=== PATIENT | male | born 1965 | race Caucasian/White ===

== ENCOUNTER 2016-10-16 10:56 | Observation (INO) | payer OTHER ==
[2016-10-16] MEDS ORDERED: MAG HYDROX/AL HYDROX/SIMETH 355 ML ORAL.SUSP PO ONE (11:36)
[2016-10-16] MEDS ORDERED: PANTOPRAZOLE SODIUM 40 MG in SODIUM CHLORIDE 100 ML IVPB ONE (11:36)
[2016-10-16] MEDS ORDERED: FAMOTIDINE 20 MG/50 ML IVPB 50 ML IVPB ONE ×2 (11:36→12:02)
[2016-10-16 11:41] LABS: BASOPHIL 0.8 % (0-2.0); EOSINOPHIL 1.4 % (0-4.5); MCH 31.8 pg (25.7-33.7); MCHC 34.9 g/dl (32.0-35.9); MEAN CELL VOLUME 91.3 fl (80-96); MEAN PLT VOLUME 7.5 fl (7.5-11.1); NEUTROPHILS 64.6 % (42.8-82.8); PLATELET COUNT 199 K/MM3 (134-434); RDW 13.4 % (11.9-15.9); WHITE BLOOD COUNT 6.3 K/mm3 (4.0-10.0)
[2016-10-16] MEDS ORDERED: MAG HYDROX/AL HYDROX/SIMETH 30 ML UNIT-DOSE CUP ONE (12:01)
[2016-10-16] MEDS ORDERED: PANTOPRAZOLE SODIUM 40 MG VIAL ONE (12:02)
--- NOTE | 2016-10-16 12:11 | PDOC ---
History of Present Illness - General History Source: Patient Exam Limitations: No Limitations - History of Present Illness Initial Comments: 10/16/16 12:11 The patient is a 50 year old male with no significant past medical history who presents to the emergency department today with chest pressure and heaviness since he woke up this morning. The patient went to sleep last night in his normal state of health last night but was woken from sleep around 4am. He describes his pain as pressure and heaviness localized to the center of his chest. The patient denies any associated chest pain or shortness of breath. He took 1 Aspirin for his pain. The patient had a ham and cheese sandwich this morning with coffee, which did not make his pain better or worse. His pain is not worse with movement. The patient denies any cough, rhinorrhea, recent illness, or sick contacts. He denies any headaches, blurry vision, or syncope. He denies any abdominal pain, nausea, or vomiting. The patient denies recent illness, fevers, or chills. He has a family history of hypertension and diabetes and his father from an [place] in his late 60s. <Betsy Ochoa - Last Filed: 10/16/16 16:39> <Jesus Roman - Last Filed: 10/17/16 09:15> - General Chief Complaint: Chest Pain Stated Complaint: CHEST PAIN/ RT SIDE NUMBNESS Time Seen by Provider: 10/16/16 11:32 Past History <Betsy Ochoa - Last Filed: 10/16/16 16:39> - Past Medical History Suicide Attempt (Hx): No - Psycho/Social/Smoking Cessation Hx Anxiety: No Suicidal Ideation: No Smoking History: Never smoked Hx Alcohol Use: Yes (SOCIAL) Drug/Substance Use Hx: No Substance Use Type: None <Jesus Roman - Last Filed: 10/17/16 09:15> - Past Medical History Allergies/Adverse Reactions: Allergies Allergy/AdvReac Type Severity Reaction Status Date / Time No Known Allergies Allergy Verified 10/16/16 11:05 Home Medications: Ambulatory Orders Aspirin [ASA -] 81 mg PO PRN 10/16/16 Review of Systems - Review of Systems Able to Perform ROS?: Yes Comments:: 10/16/16 12:11 GENERAL/CONSTITUTIONAL: No fever or chills. No weakness. HEAD, EYES, EARS, NOSE AND THROAT: No change in vision. No ear pain or discharge. No sore throat. CARDIOVASCULAR: +Chest pressure. No shortness of breath. RESPIRATORY: No cough, wheezing, or hemoptysis. GASTROINTESTINAL: No nausea, vomiting, diarrhea or constipation. GENITOURINARY: No dysuria, frequency, or change in urination. MUSCULOSKELETAL: No joint or muscle swelling or pain. No neck or back pain. SKIN: No rash NEUROLOGIC: No headache, vertigo, loss of consciousness, or change in strength/ sensation. ENDOCRINE: No increased thirst. No abnormal weight change. HEMATOLOGIC/LYMPHATIC: No anemia, easy bleeding, or history of blood clots. ALLERGIC/IMMUNOLOGIC: No hives or skin allergy. <Betsy Ochoa - Last Filed: 10/16/16 16:39> *Physical Exam - Vital Signs Last Vital Signs Temp Pulse Resp BP Pulse Ox 98.0 F 87 20 133/74 100 10/16/16 11:10/16/16 11:10/16/16 11:10/16/16 11:10/16/16 11:36 - Physical Exam Comments: 10/16/16 12:12 GENERAL: Awake, alert, and fully oriented, in no acute distress HEAD: No signs of trauma EYES: PERRLA, EOMI, sclera anicteric, conjunctiva clear ENT: Auricles normal inspection, hearing grossly normal, nares patent, oropharynx clear without exudates. Moist mucosa NECK: Normal ROM, supple, no lymphadenopathy, JVD, or masses LUNGS: Breath sounds equal, clear to auscultation bilaterally. No wheezes, and no crackles HEART: Regular rate and rhythm, normal S1 and S2, no murmurs, rubs or gallops ABDOMEN: Soft, nontender, normoactive bowel sounds. No guarding, no rebound. No masses EXTREMITIES: Normal range of motion, no edema. No clubbing or cyanosis. No cords, erythema, or tenderness NEUROLOGICAL: Cranial nerves II through XII grossly intact. Normal speech, normal gait SKIN: Warm, Dry, normal turgor, no rashes or lesions noted. <Betsy Ochoa - Last Filed: 10/16/16 16:39> - Vital Signs Last Vital Signs Temp Pulse Resp BP Pulse Ox 98.0 F 87 20 133/74 100 10/16/16 11:01 10/16/16 11:01 10/16/16 11:01 10/16/16 11:01 10/16/16 11:36 <Jesus Roman - Last Filed: 10/17/16 09:15> Heart Score/ECG Review - ECG Intrepretation Comment:: 10/16/16 12:12 FIRST EKG Vent rate: 64 bpm KS interval: 148ms QRS duration: 84 ms Normal sinus rhythm Normal EKG 10/16/16 15:53 REPEAT EKG Vent rate: 69 bpm KS interval: 158 ms QRS duration: 90 ms Normal sinus rhythm Normal EKG <Betsy Ochoa - Last Filed: 10/16/16 16:39> ED Treatment Course - LABORATORY CBC & Chemistry Diagram: 10/16/16 11:30 10/16/16 11:30 - ADDITIONAL ORDERS Additional order review: 10/16/16 11:30 RBC 4.87 MCV 91.3 MCHC 34.9 RDW 13.4 MPV 7.5 Neutrophils % 64.6 Lymphocytes % 26.2 D Monocytes % 7.0 Eosinophils % 1.4 Basophils % 0.8 - Medications Given in the ED: ED Medications Discontinued Medications Generic Name Dose Route Start Last Admin Trade Name Freq PRN Reason Stop Dose Admin Al Hydroxide/Mg Hydroxide 30 ml 10/16/16 11:36 10/16/16 12:08 Mylanta Suspension - PO 10/16/16 11:37 30 ml ONCE ONE Administration Pantoprazole Sodium 40 mg/ 100 mls @ 200 mls/hr 10/16/16 11:36 10/16/16 12:08 Sodium Chloride IVPB 10/16/16 12:05 200 mls/hr ONCE ONE Administration Famotidine/Sodium Chloride 50 mls @ 100 mls/hr 10/16/16 11:36 10/16/16 12:08 Pepcid 20 Mg Premixed Ivpb - IVPB 10/16/16 12:05 100 mls/hr ONCE ONE Administration <Betsy Ochoa - Last Filed: 10/16/16 16:39> - LABORATORY CBC & Chemistry Diagram: 10/16/16 11:30 10/16/16 11:30 - ADDITIONAL ORDERS Additional order review: 10/16/16 11:30 RBC 4.87 MCV 91.3 MCHC 34.9 RDW 13.4 MPV 7.5 Neutrophils % 64.6 Lymphocytes % 26.2 D Monocytes % 7.0 Eosinophils % 1.4 Basophils % 0.8 - RADIOLOGY Radiology Studies Ordered: Category Date Time Status CHEST X-RAY PORTABLE* [RAD] Stat Radiology 10/16/16 11:31 Completed - Medications Given in the ED: ED Medications Discontinued Medications Generic Name Dose Route Start Last Admin Trade Name Александр PRN Reason Stop Dose Admin Al Hydroxide/Mg Hydroxide 30 ml 10/16/16 11:36 10/16/16 12:08 Mylanta Suspension - PO 10/16/16 11:37 30 ml ONCE ONE Administration Pantoprazole Sodium 40 mg/ 100 mls @ 200 mls/hr 10/16/16 11:36 10/16/16 12:08 Sodium Chloride IVPB 10/16/16 12:05 200 mls/hr ONCE ONE Administration Famotidine/Sodium Chloride 50 mls @ 100 mls/hr 10/16/16 11:36 10/16/16 12:08 Pepcid 20 Mg Premixed Ivpb - IVPB 10/16/16 12:05 100 mls/hr ONCE ONE Administration <Jesus Roman - Last Filed: 10/17/16 09:15> Medical Decision Making - Medical Decision Making 10/16/16 13:07 50 yo M with no sig pmhx who presents today with chest heaviness and pressure since this morning. Patient took ASA last night. Patient was given famotidine and pantoprazole with no pain relief. As he is still having chest discomfort, will give nitro. 10/16/16 15:08 Patient reports chest pressure persists after nitro. Now complaining of a headache. 10/16/16 16:44 Patient still complaining of chest pressure. Patient had CTA which was clear. Second set of cardiac enzymes pending. <Betsy Ochoa - Last Filed: 10/16/16 16:39> - Medical Decision Making 10/17/16 09:[address] Lamb, admit for stress and serial enzymes/EKG's, Discussed with Dr Mondragon----->Admit to Dr. Woods. <Jesus Roman - Last Filed: 10/17/16 09:15> *DC/Admit/Observation/Transfer - Attestations Scribe Attestion: 10/16/16 12:12 Documentation prepared by Betsy Ochoa, acting as medical anthropologist for Jesus Roman DO. <Betsy Ochoa - Last Filed: 10/16/16 16:39> <Jesus Roman - Last Filed: 10/17/16 09:15> Diagnosis at time of Disposition: Chest pain - Referrals
[2016-10-16 12:12] LABS: ALBUMIN 3.9 g/dl (3.4-5.0); ANION GAP 9 (8-16); CALCIUM 8.5 mg/dL (8.5-10.1); CO2 25 mmol/L (21-32); GLUCOSE,RANDOM 98 mg/dL (74-106)
[2016-10-16 12:13] LABS: INR 1.11 (0.82-1.09); PROTHROMBIN TIME (PATIENT) 12.2 SEC (9.98-11.88)
[2016-10-16 12:20] LABS: ALK PHOS 66 U/L (45-117); BILIRUBIN,TOTAL 0.6 mg/dL (0.2-1.0); CREATININE 1.1 mg/dL (0.7-1.3); SGPT/ALT 29 U/L (12-78); TOT PROT 7.3 g/dl (6.4-8.2); TROPONIN I < 0.02 ng/ml (0.00-0.05)
[2016-10-16 12:22] LABS: SGOT/AST 36 U/L (15-37)
[2016-10-16] MEDS ORDERED: NITROGLYCERIN SUBLINGUAL 1/150 0.4 MG TAB SL ONE ×2 (12:54→14:19)
--- NOTE | 2016-10-16 13:41 | EKG ---
Test Reason : Blood Pressure : / mmHG Vent. Rate : 064 BPM Atrial Rate : 064 BPM P-R Int : 148 ms QRS Dur : 084 ms QT Int : 380 ms P-R-T Axes : 055 048 053 degrees QTc Int : 392 ms NORMAL SINUS RHYTHM NORMAL ECG WHEN COMPARED WITH ECG OF 10-MAY-2015 20:30, NO SIGNIFICANT CHANGE WAS FOUND Confirmed by RE CORDOBA MD ([id number]) on 10/16/2016 1:41:00 PM Referred By: Confirmed By:RE CORDOBA MD
[2016-10-16 16:25] LABS: TROPONIN I < 0.02 ng/ml (0.00-0.05)
[2016-10-16] MEDS ORDERED: LORazepam 1 MG TABLET PO ONE (17:45)
[2016-10-16] MEDS ORDERED: LORAZEPAM CARPU-JECT 2 MG/ML DISP.SYRIN ONE (18:00)
[2016-10-16] MEDS ORDERED: LORazepam 0.5 MG TABLET ONE (18:01)
[2016-10-17 01:13] VITALS: BMI 30.4
[2016-10-17 01:16] LABS: TROPONIN I < 0.02 ng/ml (0.00-0.05)
--- NOTE | 2016-10-17 08:48 | PN ---
Progress Note (short form) - Note Progress Note: Cardiology Consult Dictated 50M with no cardiac RF admitted with atypical CP. ECG w/ no acute changes, cardiac enzymes - x3 REC: 1. Echo 2. Stress MIBI today 3. ASA Further reccs pending above diagnostic studies.
--- NOTE | 2016-10-17 09:39 | CONS ---
CARDIOLOGY CONSULTATION DATE OF CONSULTATION: DATE OF DICTATION: 10/17/2016 REQUESTED BY: Hitesh Stewart MD for chest pain. HISTORY OF PRESENT ILLNESS: The patient is a 50-year-old male with no cardiac risk factors who presents to the emergency department for evaluation of substernal chest pressure. He describes substernal chest pressure across the entire precordium, non-radiating. No associated nausea, vomiting or diaphoresis. Pain is non-exertional. He denies any recent trauma or over-exertion, denies recent upper respiratory infection, fevers or chills. He has no chronic medical problems and denies smoking, diabetes, hypertension, hyperlipidemia. There is no early family history of coronary artery disease. He has no known drug allergies. HOME MEDICATION: Aspirin 81 mg p.r.n. FAMILY HISTORY: His family history is negative for sudden cardiac ; there is no early family history of CAD. SOCIAL HISTORY: Denies smoking. Works in sales. PHYSICAL EXAM: General: No distress, afebrile. Vital signs: Blood pressure 115/76. O2 saturation 99% on room air. HEENT: Neck: No bruits. Heart: S1, S2/regular. No murmurs. Lungs: Chest clear bilaterally. Abdomen: Soft, nontender. Extremities: No edema. Pulses 2+ and symmetric bilaterally in the carotid, radial and dorsalis pedis distribution. LABS: White count 6.3, hematocrit 44.4, platelets 199. CK and troponin are negative x 3 sets. EKG: Sinus rhythm at 69 beats per minute with no acute ST changes. RADIOGRAPHIC FINDINGS: CT chest/CTA chest: No dissection, no pulmonary embolism. ASSESSMENT: 50-year-old male with no cardiac risk factors, presents with atypical chest pain. PLAN: 1. Aspirin 81 mg daily. 2. Echocardiogram for assessment of LV function. Rule out pericardial disease. 3. Nuclear stress test. 4. Further recommendations pending above diagnostics. Thank you for the consultation. LEXI SANTOYO M.D. [id number] cc: Hitesh Stewart MD
[2016-10-17] MEDS ORDERED: ASPIRIN 81 MG CHEWABLE TABLETS PO SCH (10:00)
--- NOTE | 2016-10-17 13:02 | HP ---
Admitting History and Physical - Admission History of Present Illness: The patient is a 50 year old male with no significant past medical history who presents to the emergency department today with chest pressure and heaviness since he woke up this morning. The patient went to sleep last night in his normal state of health last night but was woken from sleep around 4am. He describes his pain as pressure and heaviness localized to the center of his chest. The patient denies any associated chest pain or shortness of breath. He took 1 Aspirin for his pain. The patient had a ham and cheese sandwich this morning with coffee, which did not make his pain better or worse. His pain is not worse with movement. The patient denies any cough, rhinorrhea, recent illness, or sick contacts. He denies any headaches, blurry vision, or syncope. He denies any abdominal pain, nausea, or vomiting. The patient denies recent illness, fevers, or chills. He has a family history of hypertension and diabetes and his father from an [place] in his late 60s. patient came in severe heavy pressure History Source: Patient - Smoking History Smoking history: Never smoked - Alcohol/Substance Use Hx Alcohol Use: Yes (SOCIAL) Home Medications - Allergies Allergies/Adverse Reactions: Allergies Allergy/AdvReac Type Severity Reaction Status Date / Time No Known Allergies Allergy Verified 10/16/16 11:05 - Home Medications Home Medications: Ambulatory Orders Aspirin [ASA -] 81 mg PO PRN 10/16/16 Family Disease History - Family Disease History Other Family History: htn and [place] in family Review of Systems - Review of Systems Cardiovascular: reports: No Symptoms Respiratory: reports: No Symptoms Physical Examination Vital Signs: Vital Signs Temperature 97.8 F 10/17/16 06:00 Pulse Rate 62 10/17/16 06:00 Respiratory Rate 14 10/17/16 06:00 Blood Pressure 115/76 10/17/16 06:00 O2 Sat by Pulse Oximetry (%) 100 10/17/16 08:22 Imaging - Results Other: Pending (CTA no embolus) Problem List - Problems (1) Chest pain Assessment/Plan: CE 3 set negative stress test negative ECHO ok continue asa dc home if ok with cardiology Code(s): R07.9 - CHEST PAIN, UNSPECIFIED
--- NOTE | 2016-10-17 14:36 | DS ---
Physical Examination Vital Signs: Vital Signs Temperature 97.8 F 10/17/16 06:00 Pulse Rate 62 10/17/16 06:00 Respiratory Rate 14 10/17/16 06:00 Blood Pressure 115/76 10/17/16 06:00 O2 Sat by Pulse Oximetry (%) 100 10/17/16 08:22 no chest pressure CE and echo normal stress test normal Constitutional: Yes: Calm Cardiovascular: Yes: Regular Rate and Rhythm, S1, S2 Respiratory: Yes: CTA Bilaterally Gastrointestinal: Yes: Normal Bowel Sounds, Soft Edema: No Discharge Summary Reason For Visit: CHEST PAIN Current Active Problems Chest pain (Acute) Hospital Course: The patient is a 50 year old male with no significant past medical history who presents to the emergency department today with chest pressure and heaviness since he woke up this morning. The patient went to sleep last night in his normal state of health last night but was woken from sleep around 4am. He describes his pain as pressure and heaviness localized to the center of his chest. The patient denies any associated chest pain or shortness of breath. He took 1 Aspirin for his pain. The patient had a ham and cheese sandwich this morning with coffee, which did not make his pain better or worse. His pain is not worse with movement. The patient denies any cough, rhinorrhea, recent illness, or sick contacts. He denies any headaches, blurry vision, or syncope. He denies any abdominal pain, nausea, or vomiting. The patient denies recent illness, fevers, or chills. He has a family history of hypertension and diabetes and his father from an [place] in his late 60s. admitted for chest pressure: CE 3 sets negative, ECHO negative and stress test negative continue low dose aspirirn - Instructions Diet, Activity, Other Instructions: low sodium low cholesterol diet aspirin 81mg po daily Referrals: Shayla Giron [Primary Care Provider] - Disposition: HOME - Home Medications Comprehensive Discharge Medication List: Ambulatory Orders Aspirin [ASA -] 81 mg PO PRN 10/16/16
[2016-10-17 15:12] VITALS: BP 120/72; PULSE 70; TEMP 98
--- NOTE | 2016-10-17 17:33 | EKG ---
Test Reason : Blood Pressure : / mmHG Vent. Rate : 069 BPM Atrial Rate : 069 BPM P-R Int : 158 ms QRS Dur : 090 ms QT Int : 406 ms P-R-T Axes : 046 041 047 degrees QTc Int : 435 ms NORMAL SINUS RHYTHM NORMAL ECG WHEN COMPARED WITH ECG OF 16-OCT-2016 11:03, NO SIGNIFICANT CHANGE WAS FOUND Confirmed by GENARO ROCHA MD ([id number]) on 10/17/2016 5:32:56 PM Referred By: Confirmed By:GENARO ROCHA MD
== END 2016-10-17 15:15 | disposition home or self-care (01) ==
LOC: JER 10:56 → INTOOBSV 21:30 → UNDOADMOB 21:30 → JERBED 21:30 → JICU 10-17 01:19 → JERBED 10-17 14:33 → JICU 10-17 14:33
PROVIDERS: ADMIT Family Medicine; ATTEND Family Medicine
DX: R07.89 Other chest pain (principal)
CPT/HCPCS: 36415; 71010-TC; 71275-TC; 78452-TC; 80053; 82550; 82553; 83690; 84484; 85025; 85610; 93005; 93010; 93017; 93306-TC; 99285-25; A9502; G0378